=== PATIENT | female | born 1940 | race Caucasian/White ===

== ENCOUNTER 2016-09-17 11:59 | Inpatient (IN) | payer MEDICARE ==
[~2016-09-17] VITALS: Ht 152.4 cm; Wt 110.0 kg
[~2016-09-17 11:59] MED LIST: AMLO5TAB22 PO; CALC-179 PO; COUM5TAB PO; FISHCAP; LEVO100T4 PO; ONE50TAB4
--- NOTE | 2016-09-17 12:31 | PD ---
HPI Chief Complaint: nonhealing wound with cellulitis of the left lower extremity. Time Seen by Provider: 12:30 Travel History International Travel<30 days: No Contact w/Intl Traveler<30days: No Traveled to known affect area: No History of Present Illness HPI 75-year-old female brought in by [facility] from local nursing facility. Patient states an injury to the left lower extremity 2 weeks ago for which she was hospitalized in [facility]. She was recently discharged to the nursing facility and placed on oral medications. Her PCP Dr. Stock saw her and recommended she come the emergency department as she was not improving on oral antibiotics. Currently the patient has no real complaints of fever, chills , pain, or other constitutional symptoms. Patient is currently on doxycycline and Cefdinir by mouth. Patient has a history of chronic lymphadenopathy and lower extremity edema as well as atrial fibrillation, and thyroid disease. She is on Lasix and Bumex as well as Coumadin. She is allergic to Cipro, codeine, and cortisone. [facility] Social History Alcohol Use: No Tobacco Use: No Substance Use: No Allergies-Medications (Allergen,Severity, Reaction): Coded Allergies: Cipro (Verified Allergy, Intermediate, ITCHING, 09/17/16) Cortisone (Verified Allergy, Intermediate, RASH, 09/17/16) Codeine (Verified Allergy, Unknown, RASH, 09/17/16) Reported Meds & Prescriptions Reported Meds & Active Scripts Active Reported Tylenol-Codeine #3 (Acetaminophen-Codeine) 300-30 mg Tab 1 Tab PO Q6H PRN 14 Days Milk of Magnesia Liq (Magnesium Hydroxide) 400 Mg/5 Ml Susp 30 Ml PO BID PRN Zofran (Ondansetron HCl) 4 Mg Tab 4 Mg PO Q6HR PRN Pepcid (Famotidine) 20 Mg Tab 20 Mg PO BID Coumadin (Warfarin) 5 Mg Tab 5 Mg PO DAILY Cefdinir 300 Mg Cap 300 Mg PO Q12HR Doxycycline Hyclate 100 Mg Cap 100 Mg PO BID 10 Days Colace (Docusate Sodium) 100 Mg Cap 100 Mg PO Q12HR Kaibeto-3 Fish Oil 1000 mg (Kaibeto-3 Fatty Acids) 1 Cap Cap 1,000 Mg PO BID Symbicort Inh (Budesonide/Formoterol Fumarate) 80-4.5 Mcg/Act Aero 1 Puff INH Q12HR Bumetanide 0.5 Mg Tab 0.5 Mg PO DAILY Multi Vitamin (Multiple Vitamin) 1 Tab Tab 1 Tab PO DAILY Levothyroxine (Levothyroxine Sodium) 100 Mcg Tab 100 Mcg PO DAILY Review of Systems Except as stated in HPI: all other systems reviewed are Neg General / Constitutional: No: Fever, Chills Eyes: No: Visual changes HENT: No: Headaches Cardiovascular: No: Chest Pain or Discomfort Respiratory: No: Shortness of Breath Gastrointestinal: No: Abdominal Pain Genitourinary: No: Dysuria Musculoskeletal: No: Pain Skin: Positive Lesions, No Rash Neurologic: No: Weakness Psychiatric: No: Depression Endocrine: No: Polydipsia Hematologic/Lymphatic: No: Easy Bruising Physical Exam Narrative GENERAL: Patient is morbidly obese and otherwise in no acute distress. SKIN: Warm and dry. Normal color. Normal turgor. Patient has large six-inch by one half and open wound to the left anterior romero with localized erythema, but no streaking or lymphangitis. Wound cultures obtained. HEAD: Atraumatic. Normocephalic. EYES: Pupils equal and round. No scleral icterus. No injection or drainage. ENT: No nasal bleeding or discharge. Mucous membranes pink and moist. Pharynx is clear. Airway is patent. NECK: Trachea midline. Supple nontender. CARDIOVASCULAR: Irregularly irregular rate and rhythm. RESPIRATORY: No accessory muscle use. Clear to auscultation. Breath sounds equal bilaterally. GASTROINTESTINAL: Abdomen soft, non-tender, nondistended. Hepatic and splenic margins not palpable. MUSCULOSKELETAL: Extremities without clubbing, cyanosis, bilateral 2-3+ pedal edema. No obvious deformities. NEUROLOGICAL: Awake and alert. No obvious cranial nerve deficits. Motor grossly within normal limits. Five out of 5 muscle strength in the arms and legs. Normal speech. PSYCHIATRIC: Appropriate mood and affect; insight and judgment normal. Data Data Last Documented VS Vital Signs Date Time Temp Pulse Resp B/P Pulse Ox O2 Delivery O2 Flow Rate FiO2 09/17/16 12:58 97 Room Air 09/17/16 12:58 16 09/17/16 12:46 81 09/17/16 12:34 97.8 103/67 Orders Electrocardiogram (09/17/16 12:39) Complete Blood Count With Diff (09/17/16 12:39) Comprehensive Metabolic Panel (09/17/16 12:39) Prothrombin Time / Inr (Pt) (09/17/16 12:39) Act Partial Throm Time (Ptt) (09/17/16 12:39) Lactic Acid Sepsis Protocol (09/17/16 12:39) Urinalysis - C+S If Indicated (09/17/16 12:39) Blood Culture (09/17/16 12:39) Wound Culture And Gram Stain (09/17/16 12:39) Chest, Single Ap (09/17/16 12:39) Blood Glucose (09/17/16 12:39) Ecg Monitoring (09/17/16 12:39) Iv Access Insert/Monitor (09/17/16 12:39) Oximetry (09/17/16 12:39) Oxygen Administration (09/17/16 12:39) Piperacil-Tazo 4.5 Gm Premix (Zosyn 4.5 (09/17/16 12:39) Vancomycin Inj (Vancomycin Inj) (09/17/16 12:39) Admit To Inpatient (09/17/16 ) Code Status (09/17/16 13:58) Vital Signs (Adult) Q4H (09/17/16 13:58) Activity Oob With Assistance (09/17/16 13:58) Diet Heart Healthy (09/17/16 Lunch) Sodium Chloride 0.9% Flush (Ns Flush) (09/17/16 14:00) Sodium Chloride 0.9% Flush (Ns Flush) (09/17/16 21:00) Acetaminophen (Tylenol) (09/17/16 14:00) Ondansetron Inj (Zofran Inj) (09/17/16 14:00) Magnesium Hydroxide Liq (Milk Of Magnesi (09/17/16 14:00) Temazepam (Restoril) (09/17/16 21:00) Basic Metabolic Panel (Bmp) (09/18/16 06:00) Complete Blood Count With Diff (09/18/16 06:00) Pt Request For Service (09/17/16 13:58) Scd Bilateral/Knee High EARLENE.BID (09/17/16 13:58) Naloxone Inj (Narcan Inj) (09/17/16 14:00) Inpatient Certification (09/17/16 ) Consult General Surgery (09/17/16 ) Piperacil-Tazo 2.25 Gm Premix (Zosyn 2.2 (09/17/16 20:00) Magnesium (Mg) (09/18/16 06:00) Budeson-Formot 80-4.5 Mcg Inh (Symbicort (09/17/16 21:00) Bumetanide (Bumetanide) (09/18/16 09:00) Famotidine (Pepcid) (09/17/16 21:00) Levothyroxine (Synthroid) (09/18/16 06:00) Multivitamin (Theragran) (09/18/16 09:00) Warfarin (Coumadin) (09/17/16 16:00) Vancomycin Consult Pharmacy (Vancomycin (09/17/16 14:15) Admit Order (Ed Use Only) (09/17/16 14:08) Labs Laboratory Tests Test 09/17/16 13:00 White Blood Count 6.9 TH/MM3 Red Blood Count 3.40 MIL/MM3 Hemoglobin 9.8 GM/DL Hematocrit 30.2 % Mean Corpuscular Volume 88.9 FL Mean Corpuscular Hemoglobin 28.9 PG Mean Corpuscular Hemoglobin 32.6 % Concent Red Cell Distribution Width 15.5 % Platelet Count 275 TH/MM3 Mean Platelet Volume 8.1 FL Neutrophils (%) (Auto) 63.7 % Lymphocytes (%) (Auto) 22.8 % Monocytes (%) (Auto) 10.1 % Eosinophils (%) (Auto) 2.5 % Basophils (%) (Auto) 0.9 % Neutrophils # (Auto) 4.4 TH/MM3 Lymphocytes # (Auto) 1.6 TH/MM3 Monocytes # (Auto) 0.7 TH/MM3 Eosinophils # (Auto) 0.2 TH/MM3 Basophils # (Auto) 0.1 TH/MM3 CBC Comment DIFF FINAL Differential Comment Prothrombin Time 19.5 SEC Prothromb Time International 1.7 RATIO Ratio Activated Partial 32.7 SEC Thromboplast Time Sodium Level 144 MEQ/L Potassium Level 4.5 MEQ/L Chloride Level 104 MEQ/L Carbon Dioxide Level 32.4 MEQ/L Anion Gap 8 MEQ/L Blood Urea Nitrogen 28 MG/DL Creatinine 1.64 MG/DL Estimat Glomerular Filtration 31 ML/MIN Rate Random Glucose 91 MG/DL Lactic Acid Level 0.9 mmol/L Calcium Level 8.5 MG/DL Total Bilirubin 0.4 MG/DL Aspartate Amino Transf 12 U/L (AST/SGOT) Alanine Aminotransferase 14 U/L (ALT/SGPT) Alkaline Phosphatase 115 U/L Total Protein 5.8 GM/DL Albumin 2.3 GM/DL [facility] Medical Decision Making Medical Screen Exam Complete: Yes Emergency Medical Condition: Yes Differential Diagnosis Nonhealing wound to the left anterior thigh. Cellulitis. Thyroid outpatient therapy. Narrative Course Patient medically stable at time of exam. Labs ordered including CBC, CMP, PT PTT and INR, Lactic acid, blood cultures 2 , and urinalysis. EKG and chest x-ray are ordered as well. EKG shows atrial fibrillation with a ventricular rate of 91. Chest x-ray shows questional mass in the right side and chest CT with intravenous contrast is suggested. Call was Placed to Dr. Stock, and he agreed to Admit the patient as he saw her earlier in the Day and knows the patient. Diagnosis Primary Impression: Cellulitis of left lower extremity Additional Impressions: Chronic a-fib COPD (chronic obstructive pulmonary disease) Qualified Code: J42 - Chronic bronchitis, unspecified chronic bronchitis type Admitting Information Admitting Physician Requests: Admit Condition: Stable Clot Alfredo Sep 17, 2016 12:31
[2016-09-17 12:34] VITALS: BP 103/67; PULSE 88; RESP 16; TEMP 97.8; O2SAT 97
[2016-09-17] MEDS ORDERED: PIPERACIL-TAZO 4.5 GM PREMIX 100 ML IV STA (12:39)
[2016-09-17] MEDS ORDERED: VANCOMYCIN INJ 1,000 MG in SODIUM CHLOR 0.9% 250 ML INJ 250 ML IV STA (12:39)
[2016-09-17 12:58] VITALS: RESP 16; O2SAT 98
--- NOTE | 2016-09-17 13:18 | RADRPT ---
EXAM DATE/TIME: 09/17/2016 12:47 CORRECTION Corrected on: September 17, 2016; [facility] COMPARISON: No previous studies available for comparison. INDICATIONS : Evaluate for pneumonia, pneumothorax or communicable disease, being admitted for infection in her lef t leg. MEDICAL HISTORY : Chronic obstructive pulmonary disease. atrial fibrillation SURGICAL HISTORY : None. ENCOUNTER: Initial ACUITY: 1 day PAIN SCORE: 0/10 LOCATION: Bilateral chest FINDINGS: There is a questionable mass versus overlap of the pulmonary arteries in the right infrahilar locatio n. Slight cardiomegaly seen. CONCLUSION: Questionable mass on the right side and chest CT with intravenous contrast is suggested. Benja Escalona MD on September 17, 2016 at 13:24 Board Certified Radiologist. This report was verified electronically.
[2016-09-17] MEDS ORDERED: LEVO100T5 PO (13:22)
[2016-09-17] MEDS ORDERED: OMEG10005 PO (13:22)
[2016-09-17] MEDS ORDERED: DOXY100C PO (13:22)
[2016-09-17] MEDS ORDERED: CEFD300C PO (13:22)
[2016-09-17] MEDS ORDERED: FAMO1TAB37 PO (13:22)
[2016-09-17] MEDS ORDERED: COUM5TAB PO (13:22)
[2016-09-17] MEDS ORDERED: BUME0.5T PO (13:22)
[2016-09-17] MEDS ORDERED: SYMB80AE INH (13:22)
[2016-09-17] MEDS ORDERED: ZOFR4TAB PO (13:22)
[2016-09-17] MEDS ORDERED: MULT-135 PO (13:22)
[2016-09-17] MEDS ORDERED: COLA100C3 PO (13:22)
[2016-09-17] MEDS ORDERED: MILKSUS PO (13:22)
[2016-09-17] MEDS ORDERED: TYLETAB34 PO (13:22)
[2016-09-17 13:46] LABS: AUTOMATED NEUTROPHIL # 4.4 TH/MM3 (1.8-7.7); BASOPHIL # 0.1 TH/MM3 (0-0.2); BASOPHIL % 0.9 % (0.0-2.0); EOSINOPHIL # 0.2 TH/MM3 (0-0.4); EOSINOPHIL % 2.5 % (0.0-4.0); HEMATOCRIT 30.2 % (35.0-46.0); HEMO FLAGS DIFF FINAL; LYMPH % 22.8 % (9.0-44.0); LYMPHOCYTE # 1.6 TH/MM3 (1.0-4.8); MEAN CELL VOLUME 88.9 FL (80.0-100.0); MEAN CORPUSCULAR HEMOGLOBIN 28.9 PG (27.0-34.0); MEAN CORPUSCULAR HGB CONC 32.6 % (32.0-36.0); MONO % 10.1 % (0.0-8.0); NEUT % 63.7 % (16.0-70.0); PLATELET COUNT 275 TH/MM3 (150-450); RED CELL DISTRIBUTION WIDTH 15.5 % (11.6-17.2); WHITE BLOOD COUNT 6.9 TH/MM3 (4.0-11.0)
[2016-09-17 13:52] LABS: APTT (PATIENT) 32.7 SEC (24.3-30.1); INTERNATIONAL NORMALIZED RATIO 1.7 RATIO; PROTHROMBIN TIME - PATIENT 19.5 SEC (9.8-11.6)
[2016-09-17] MEDS ORDERED: MAGNESIUM HYDROXIDE SUSP 30 ML CUP PO PRN (14:00)
[2016-09-17] MEDS ORDERED: NALOXONE HCL 0.4 MG/ML AMP IV PRN (14:00)
[2016-09-17] MEDS ORDERED: ONDANSETRON HCL 4 MG/2 ML VIAL IVP PRN (14:00)
[2016-09-17] MEDS ORDERED: SODIUM CHLORIDE 0.9% FLUSH 10 ML FLUSH IV FLUSH PRN (14:00)
[2016-09-17] MEDS ORDERED: ACETAMINOPHEN 325 MG TAB PO PRN (14:00)
[2016-09-17 14:07] LABS: ALT (GPT) 14 U/L (10-53); ANION GAP 8 MEQ/L (5-15); AST (GOT) 12 U/L (15-37); BICARBONATE 32.4 MEQ/L (21.0-32.0); BLOOD UREA NITROGEN 28 MG/DL (7-18); CHLORIDE 104 MEQ/L (98-107); GLOMERULAR FILTRATION RATE 31 ML/MIN (>89); POTASSIUM 4.5 MEQ/L (3.5-5.1); SODIUM (NA) 144 MEQ/L (136-145)
[2016-09-17 14:09] LABS: ALKALINE PHOSPHATASE 115 U/L (45-117); TOTAL BILIRUBIN ADULT 0.4 MG/DL (0.2-1.0)
[2016-09-17] MEDS ORDERED: ACETAMINOPHEN/HYDROcodone 325 MG/5 MG TAB PO PRN (14:15)
[2016-09-17] MEDS ORDERED: Vancomycin Consult Pharmacy 1 EA OTHER SCH (14:15)
[2016-09-17 14:28] VITALS: BP 102/66; PULSE 68; RESP 17; TEMP 97.8; O2SAT 99
[2016-09-17] MEDS ORDERED: ACETAMINOPHEN/CODEINE 300 MG/30 MG TAB PO PRN (15:00)
[2016-09-17] MEDS ORDERED: SILVER NITR/POTASSIUM NITRATE APPLICATORS TOPICAL ONE (15:30)
--- NOTE | 2016-09-17 15:37 | PD.CONS ---
HPI Service [facility] General Surgery Consult Requested By Dr. Stock Reason for Consult nonhealing LLE wound Primary Care Physician Unknown History of Present Illness 75 yo F who had a fall about 3 weeks ago with wound to LLE romero area. She developed cellulitis and was treated at [facility] for a time before being discharged to SNF. She has had continued nonhealing wound with surrounding cellulitis. She has h/o DVT on coumadin. Past Family Social History Allergies: Coded Allergies: Cipro (Verified Allergy, Intermediate, ITCHING, 09/17/16) Cortisone (Verified Allergy, Intermediate, RASH, 09/17/16) Codeine (Verified Allergy, Unknown, RASH, 09/17/16) Active Ordered Medications Current Medications Medications (Trade) Dose Ordered Sig/Merrick Route Start Time Stop Time Status Last Admin (NS Flush) 2 ml UNSCH PRN IV FLUSH 09/17/16 14:00 (NS Flush) 2 ml BID IV FLUSH 09/17/16 21:00 (Tylenol) 650 mg Q4H PRN PO 09/17/16 14:00 (Zofran Inj) 4 mg Q6H PRN IVP 09/17/16 14:00 (Milk Of Magnesia Liq) 30 ml Q12H PRN PO 09/17/16 14:00 (Restoril) 15 mg HS PRN PO 09/17/16 21:00 Naloxone HCl 0.4 mg 0.4 mg UNSCH PRN IV 09/17/16 14:00 (Zosyn 2.25 Gm Premix) 50 ml @ 100 mls/hr Q6H IV 09/17/16 20:00 (Symbicort 80-4.5 Mcg Inh) 1 puff Q12HR INH 09/17/16 21:00 (Bumetanide) 0.5 mg DAILY PO 09/18/16 09:00 (Pepcid) 10 mg BID PO 09/17/16 21:00 (Synthroid) 100 mcg DAILY@06 PO 09/18/16 06:00 (Theragran) 1 tab DAILY PO 09/18/16 09:00 Warfarin Sodium 5 mg 5 mg DAILY@1600 PO 09/17/16 16:00 Pharmacy Profile Note ml @ 0 mls/hr UNSCH OTHER 09/17/16 14:15 (Vancomycin Inj/ NS 500 ml Inj) 517.5 ml @ 250 mls/hr Q36H IV 09/18/16 13:00 (Tylenol-Codeine #3) 1 tab Q6H PRN PO 09/17/16 15:00 Physical Exam Vital Signs Vital Signs Date Time Temp Pulse Resp B/P Pulse Ox O2 Delivery O2 Flow Rate FiO2 09/17/16 14:28 97.8 68 17 102/66 99 Room Air 09/17/16 12:58 97 Room Air 09/17/16 12:58 16 98 Room Air 09/17/16 12:46 81 09/17/16 12:34 97.8 88 16 103/67 97 Laboratory Laboratory Tests Test 09/17/16 13:00 White Blood Count 6.9 Red Blood Count 3.40 Hemoglobin 9.8 Hematocrit 30.2 Mean Corpuscular Volume 88.9 Mean Corpuscular Hemoglobin 28.9 Mean Corpuscular Hemoglobin 32.6 Concent Red Cell Distribution Width 15.5 Platelet Count 275 Mean Platelet Volume 8.1 Neutrophils (%) (Auto) 63.7 Lymphocytes (%) (Auto) 22.8 Monocytes (%) (Auto) 10.1 Eosinophils (%) (Auto) 2.5 Basophils (%) (Auto) 0.9 Neutrophils # (Auto) 4.4 Lymphocytes # (Auto) 1.6 Monocytes # (Auto) 0.7 Eosinophils # (Auto) 0.2 Basophils # (Auto) 0.1 CBC Comment DIFF FINAL Differential Comment Prothrombin Time 19.5 Prothromb Time International 1.7 Ratio Activated Partial 32.7 Thromboplast Time Sodium Level 144 Potassium Level 4.5 Chloride Level 104 Carbon Dioxide Level 32.4 Anion Gap 8 Blood Urea Nitrogen 28 Creatinine 1.64 Estimat Glomerular Filtration 31 Rate Random Glucose 91 Lactic Acid Level 0.9 Calcium Level 8.5 Total Bilirubin 0.4 Aspartate Amino Transf 12 (AST/SGOT) Alanine Aminotransferase 14 (ALT/SGPT) Alkaline Phosphatase 115 Total Protein 5.8 Albumin 2.3 Date/Time Procedure Status Source Growth 09/17/16 13:12 Aerobic Blood Culture Received Blood Peripheral Pending 09/17/16 13:12 Anaerobic Blood Culture Received Blood Peripheral Pending 09/17/16 13:00 Gram Stain - Final Resulted Wound Leg 09/17/16 13:00 Wound Culture Resulted Wound Leg Pending Result Diagram: 09/17/16 1300 09/17/16 1300 Assessment and Plan Assessment and Plan 75 yo F nonhealing LLE wound with cellulitis. I performed sharp debridment and chemical debridement with silver nitrate at bedside. Consult wound care nurse. Wrap with aurelia bandage from toes to just below knee at each dressing change, just enough pressure to decrease edema. Florentino Yap MD Sep 17, 2016 15:37
[2016-09-17] MEDS ORDERED: FUROSEMIDE 100 MG/10 ML VIAL IV PUSH ONE (16:00)
[2016-09-17] MEDS ORDERED: IODIXANOL 320 MG/ML 10 ML VIAL (for Rad CT) IV ONE (16:02)
--- NOTE | 2016-09-17 16:04 | PD ---
Data Data Last Documented VS Vital Signs Date Time Temp Pulse Resp B/P Pulse Ox O2 Delivery O2 Flow Rate FiO2 09/17/16 12:58 97 Room Air 09/17/16 12:58 16 09/17/16 12:46 81 09/17/16 12:34 97.8 103/67 Orders Electrocardiogram (09/17/16 12:39) Complete Blood Count With Diff (09/17/16 12:39) Comprehensive Metabolic Panel (09/17/16 12:39) Prothrombin Time / Inr (Pt) (09/17/16 12:39) Act Partial Throm Time (Ptt) (09/17/16 12:39) Lactic Acid Sepsis Protocol (09/17/16 12:39) Urinalysis - C+S If Indicated (09/17/16 12:39) Blood Culture (09/17/16 12:39) Wound Culture And Gram Stain (09/17/16 12:39) Chest, Single Ap (09/17/16 12:39) Blood Glucose (09/17/16 12:39) Ecg Monitoring (09/17/16 12:39) Iv Access Insert/Monitor (09/17/16 12:39) Oximetry (09/17/16 12:39) Oxygen Administration (09/17/16 12:39) Piperacil-Tazo 4.5 Gm Premix (Zosyn 4.5 (09/17/16 12:39) Vancomycin Inj (Vancomycin Inj) (09/17/16 12:39) Admit To Inpatient (09/17/16 ) Code Status (09/17/16 13:58) Vital Signs (Adult) Q4H (09/17/16 13:58) Activity Oob With Assistance (09/17/16 13:58) Diet Heart Healthy (09/17/16 Lunch) Sodium Chloride 0.9% Flush (Ns Flush) (09/17/16 14:00) Sodium Chloride 0.9% Flush (Ns Flush) (09/17/16 21:00) Acetaminophen (Tylenol) (09/17/16 14:00) Ondansetron Inj (Zofran Inj) (09/17/16 14:00) Magnesium Hydroxide Liq (Milk Of Magnesi (09/17/16 14:00) Temazepam (Restoril) (09/17/16 21:00) Basic Metabolic Panel (Bmp) (09/18/16 06:00) Complete Blood Count With Diff (09/18/16 06:00) Electrocardiogram (09/17/16 13:58) Pt Request For Service (09/17/16 13:58) Scd Bilateral/Knee High EARLENE.BID (09/17/16 13:58) Naloxone Inj (Narcan Inj) (09/17/16 14:00) Inpatient Certification (09/17/16 ) Consult General Surgery (09/17/16 ) Ct Thorax/ Chest W Iv Contrast (09/17/16 ) Piperacil-Tazo 2.25 Gm Premix (Zosyn 2.2 (09/17/16 20:00) Magnesium (Mg) (09/18/16 06:00) Budeson-Formot 80-4.5 Mcg Inh (Symbicort (09/17/16 21:00) Bumetanide (Bumetanide) (09/18/16 09:00) Famotidine (Pepcid) (09/17/16 21:00) Levothyroxine (Synthroid) (09/18/16 06:00) Multivitamin (Theragran) (09/18/16 09:00) Warfarin (Coumadin) (09/17/16 16:00) Vancomycin Consult Pharmacy (Vancomycin (09/17/16 14:15) Admit Order (Ed Use Only) (09/17/16 14:08) Labs Laboratory Tests Test 09/17/16 13:00 White Blood Count 6.9 TH/MM3 Red Blood Count 3.40 MIL/MM3 Hemoglobin 9.8 GM/DL Hematocrit 30.2 % Mean Corpuscular Volume 88.9 FL Mean Corpuscular Hemoglobin 28.9 PG Mean Corpuscular Hemoglobin 32.6 % Concent Red Cell Distribution Width 15.5 % Platelet Count 275 TH/MM3 Mean Platelet Volume 8.1 FL Neutrophils (%) (Auto) 63.7 % Lymphocytes (%) (Auto) 22.8 % Monocytes (%) (Auto) 10.1 % Eosinophils (%) (Auto) 2.5 % Basophils (%) (Auto) 0.9 % Neutrophils # (Auto) 4.4 TH/MM3 Lymphocytes # (Auto) 1.6 TH/MM3 Monocytes # (Auto) 0.7 TH/MM3 Eosinophils # (Auto) 0.2 TH/MM3 Basophils # (Auto) 0.1 TH/MM3 CBC Comment DIFF FINAL Differential Comment Prothrombin Time 19.5 SEC Prothromb Time International 1.7 RATIO Ratio Activated Partial 32.7 SEC Thromboplast Time Sodium Level 144 MEQ/L Potassium Level 4.5 MEQ/L Chloride Level 104 MEQ/L Carbon Dioxide Level 32.4 MEQ/L Anion Gap 8 MEQ/L Blood Urea Nitrogen 28 MG/DL Creatinine 1.64 MG/DL Estimat Glomerular Filtration 31 ML/MIN Rate Random Glucose 91 MG/DL Lactic Acid Level 0.9 mmol/L Calcium Level 8.5 MG/DL Total Bilirubin 0.4 MG/DL Aspartate Amino Transf 12 U/L (AST/SGOT) Alanine Aminotransferase 14 U/L (ALT/SGPT) Alkaline Phosphatase 115 U/L Total Protein 5.8 GM/DL Albumin 2.3 GM/DL MDM Supervised Visit with [facility]: Yes Narrative Course The history, exam, and medical decision-making in the associated mid-level provider note were completed with my assistance. I reviewed and agree with the findings presented. I attest that I had a [id number] encounter with the patient on the same day, and personally performed and documented my assessment and findings in the medical record. *My assessment and Findings: 74 year-old woman with multiple medical problems and lymphedema and a nonhealing wound on her left leg and still having worsening infection despite oral antibiotics, referred to the emergency department for admission. On exam, not septic, chronic wound on her left leg from previous injury. Duane Soliz MD Sep 17, 2016 16:04
[2016-09-17] MEDS: POTASSIUM CHLORIDE 20 MEQ CONTROLLED RELEASE TAB PO SCH (16:09)
[2016-09-17] MEDS: WARFARIN SOD 5 MG TAB PO SCH (16:09)
--- NOTE | 2016-09-17 16:22 | RADRPT ---
EXAM DATE/TIME: 09/17/2016 15:52 [facility] COMPARISON: No previous studies available for comparison. INDICATIONS : Evaluate for mass. IV CONTRAST: 50 cc Visipaque (iodixanol) IV RADIATION DOSE: 15.93 CTDIvol (mGy) MEDICAL HISTORY : Chronic obstructive pulmonary disease. SURGICAL HISTORY : None. ENCOUNTER: Initial ACUITY: 1 day PAIN SCALE: 0/10 LOCATION: Bilateral chest TECHNIQUE: Volumetric scanning of the chest was performed. Using automated exposure control and adjustment of t he mA and/or kV according to patient size, radiation dose was kept as low as reasonably achievable to obtain optimal diagnostic quality images. FINDINGS: There are no suspicious lung lesions identified. There is marked thoracolumbar scoliosis. There is no axillary adenopathy. There are prominent pulmonary arteries centrally. There are marked coronary artery calcifications. Evidence for previous gastric surgery is noted. CONCLUSION: 1. I do not see any suspicious lung lesions. 2. Thoracolumbar scoliosis with degenerative changes. 3. Prominent pulmonary arteries centrally, this can be seen with pulmonary hypertension. Mikey Pond MD FACR on September 17, 2016 at 16:15 Board Certified Radiologist. This report was verified electronically.
[2016-09-17 16:33] VITALS: BP 106/67; PULSE 78; RESP 16; TEMP 97.8; O2SAT 99
[2016-09-17 17:20] LABS: BACTERIA, URINE RARE /hpf; BLOOD, URINE NEG (NEG); GLUCOSE,URINE NEG (NEG); HYALINE CAST, URINE 1 /lpf (RARE); KETONE, URINE NEG (NEG); NITRITE,URINE NEG (NEG); PH, URINE 8.5 (5.0-8.5); SQUAMOUS EPITHELIAL CELL URINE 3 /hpf (0-5); URINE COLOR YELLOW (YELLW/STRAW)
[2016-09-17 17:26] LABS: COMMENT (UR) CATH-CULTURE IND; CULTURE IF INDICATED CATH CULTURE IND
--- NOTE | 2016-09-17 17:38 | HHI.HP ---
HPI Service CP Hospitalists Primary Care Physician Unknown Admission Diagnosis Left Leg Wound/Cellulitis Chief Complaint: left leg wound and cellulitis Travel History International Travel<30 Days: No Contact w/Intl Traveler <30 Da: No Traveled to Known Affected Are: No History of Present Illness Patient is a pleasant 75-year-old female with history of atrial fibrillation, CHF, hypothyroidism. Patient injured her left lower extremity with a fall approximately 3 weeks ago. Patient's mother suffered a small wound at the left lower extremity. Patient failed to improve on outpatient oral antibiotics, Keflex. She was hospitalized for a few days at [facility]. Patient was treated with IV antibiotics with IV vancomycin per ID Dr. Zheng, and then discharged to [facility] on a regimen of Cefdinir and doxycycline. I was the attending physician at [facility]. Nursing staff informed me that patient was having significant drainage from edematous left lower extremity. When I came to reevaluate the patient on 09/17/16, left lower extremity had worsening edema, erythema, and wound looked worse with necrotic tissue. I requested that the patient be sent to [facility] for admission. I discussed the case with general surgery, Dr. Florentino Yap. Dr. Yap consult is on Ms. Gramajo and performed bedside debridement. Patient started on IV antibiotics and admitted to [facility] for further evaluation and treatment. Review of Systems Constitutional: DENIES: Diaphoretic episodes, Fatigue, Fever, Weight gain, Weight loss, Chills, Dizziness, Change in appetite, Night Sweats Endocrine: DENIES: Heat/cold intolerance, Polydipsia, Polyuria, Polyphagia Eyes: DENIES: Blurred vision, Diplopia, Eye inflammation, Eye pain, Vision loss , Photosensitivity, Double Vision Ears, nose, mouth, throat: DENIES: Tinnitus, Hearing loss, Vertigo, Nasal discharge, Oral lesions, Throat pain, Hoarseness, Ear Pain, Running Nose, Epistaxis, Sinus Pain, Toothache, Odynophagia Respiratory: DENIES: Apneas, Cough, Snoring, Wheezing, Hemoptysis, Sputum production, Shortness of breath Cardiovascular: DENIES: Chest pain, Palpitations, Syncope, Dyspnea on Exertion , PND, Lower Extremity Edema, Orthopnea, Claudication Gastrointestinal: DENIES: Abdominal pain, Black stools, Bloody stools, BRB per rectum, Constipation, Diarrhea, GERD, Nausea, Reflux, Vomiting, Difficulty Swallowing, Anorexia Genitourinary: DENIES: Urinary frequency, Urinary incontinence, Urgency, Hematuria, Dysuria, Nocturia Musculoskeletal: DENIES: Joint pain, Muscle aches, Stiffness, Joint Swelling, Back pain, Neck pain Integumentary: COMPLAINS OF: Nipple discharge, DENIES: Abnormal pigmentation, Pruritus, Rash, Nail changes Hematologic/lymphatic: DENIES: Bruising, Lymphadenopathy Immunologic/allergic: DENIES: Eczema, Urticaria Neurologic: DENIES: Abnormal gait, Headache, Localized weakness, Paresthesias, Seizures, Speech Problems, Tremor, Poor Balance Psychiatric: DENIES: Anxiety, Confusion, Mood changes, Depression, Hallucinations, Agitation, Suicidal Ideation, Homicidal Ideation, Delusions, History of Bipolar, History of Schizophrenia Past Family Social History Past Medical History 1) hypertension 2) hypothyroidism 3) obesity 4) atrial fibrillation 5) CHF, unspecified 6) Hyperlipidemia 7) Vitamin D 8) CKD, stage 3 Past Surgical History 1) appendectomy 2) hysterectomy 3) gastric bypass 4) abdominoplasty Reported Medications Reported Meds & Active Scripts Active Reported Tylenol-Codeine #3 (Acetaminophen-Codeine) 300-30 mg Tab 1 Tab PO Q6H PRN 14 Days Milk of Magnesia Liq (Magnesium Hydroxide) 400 Mg/5 Ml Susp 30 Ml PO BID PRN Zofran (Ondansetron HCl) 4 Mg Tab 4 Mg PO Q6HR PRN Pepcid (Famotidine) 20 Mg Tab 20 Mg PO BID Coumadin (Warfarin) 5 Mg Tab 5 Mg PO DAILY Cefdinir 300 Mg Cap 300 Mg PO Q12HR Doxycycline Hyclate 100 Mg Cap 100 Mg PO BID 10 Days Colace (Docusate Sodium) 100 Mg Cap 100 Mg PO Q12HR [place]-3 Fish Oil 1000 mg ([place]-3 Fatty Acids) 1 Cap Cap 1,000 Mg PO BID Symbicort Inh (Budesonide/Formoterol Fumarate) 80-4.5 Mcg/Act Aero 1 Puff INH Q12HR Bumetanide 0.5 Mg Tab 0.5 Mg PO DAILY Multi Vitamin (Multiple Vitamin) 1 Tab Tab 1 Tab PO DAILY Levothyroxine (Levothyroxine Sodium) 100 Mcg Tab 100 Mcg PO DAILY Allergies: Coded Allergies: Cipro (Verified Allergy, Intermediate, ITCHING, 09/17/16) Cortisone (Verified Allergy, Intermediate, RASH, 09/17/16) Codeine (Verified Allergy, Unknown, RASH, 09/17/16) Family History Noncontributory Social History - former smoker, quit 40 yrs ago - no alcohol - no illicit drugs Physical Exam Vital Signs Vital Signs Date Time Temp Pulse Resp B/P Pulse Ox O2 Delivery O2 Flow Rate FiO2 09/17/16 16:33 97.8 78 16 106/67 99 Room Air 09/17/16 14:28 97.8 68 17 102/66 99 Room Air 09/17/16 12:58 97 Room Air 09/17/16 12:58 16 98 Room Air 09/17/16 12:46 81 09/17/16 12:34 97.8 88 16 103/67 97 Physical Exam GENERAL: This is a well-nourished, well-developed patient, in no apparent distress. SKIN: No rashes, ecchymoses or lesions. Cool and dry. HEAD: Atraumatic. Normocephalic. No temporal or scalp tenderness. EYES: Pupils equal round and reactive. Extraocular motions intact. No scleral icterus. No injection or drainage. ENT: Nose without bleeding, purulent drainage or septal hematoma. Throat without erythema, tonsillar hypertrophy or exudate. Uvula midline. Airway patent. NECK: Trachea midline. No JVD or lymphadenopathy. Supple, nontender, no meningeal signs. CARDIOVASCULAR: Regular rate and rhythm without murmurs, gallops, or rubs. RESPIRATORY: Clear to auscultation. Breath sounds equal bilaterally. No wheezes , rales, or rhonchi. GASTROINTESTINAL: Abdomen soft, non-tender, nondistended. No hepato-splenomegaly , or palpable masses. No guarding. MUSCULOSKELETAL: Extremities without clubbing, cyanosis, or edema. No joint tenderness, effusion, or edema noted. No calf tenderness. Negative Homans sign bilaterally. NEUROLOGICAL: Awake and alert. Cranial nerves II through XII intact. Motor and sensory grossly within normal limits. Five out of 5 muscle strength in all muscle groups. Normal speech. Laboratory Laboratory Tests Test 09/17/16 09/17/16 13:00 16:35 White Blood Count 6.9 Red Blood Count 3.40 Hemoglobin 9.8 Hematocrit 30.2 Mean Corpuscular Volume 88.9 Mean Corpuscular Hemoglobin 28.9 Mean Corpuscular Hemoglobin 32.6 Concent Red Cell Distribution Width 15.5 Platelet Count 275 Mean Platelet Volume 8.1 Neutrophils (%) (Auto) 63.7 Lymphocytes (%) (Auto) 22.8 Monocytes (%) (Auto) 10.1 Eosinophils (%) (Auto) 2.5 Basophils (%) (Auto) 0.9 Neutrophils # (Auto) 4.4 Lymphocytes # (Auto) 1.6 Monocytes # (Auto) 0.7 Eosinophils # (Auto) 0.2 Basophils # (Auto) 0.1 CBC Comment DIFF FINAL Differential Comment Prothrombin Time 19.5 Prothromb Time International 1.7 Ratio Activated Partial 32.7 Thromboplast Time Sodium Level 144 Potassium Level 4.5 Chloride Level 104 Carbon Dioxide Level 32.4 Anion Gap 8 Blood Urea Nitrogen 28 Creatinine 1.64 Estimat Glomerular Filtration 31 Rate Random Glucose 91 Lactic Acid Level 0.9 Calcium Level 8.5 Total Bilirubin 0.4 Aspartate Amino Transf 12 (AST/SGOT) Alanine Aminotransferase 14 (ALT/SGPT) Alkaline Phosphatase 115 Total Protein 5.8 Albumin 2.3 Urine Color YELLOW Urine Turbidity CLEAR Urine pH 8.5 Urine Specific Jackson 1.016 Urine Protein TRACE Urine Glucose (UA) NEG Urine Ketones NEG Urine Occult Blood NEG Urine Nitrite NEG Urine Bilirubin NEG Urine Urobilinogen LESS THAN 2.0 Urine Leukocyte Esterase NEG Urine WBC 1 Urine Squamous Epithelial 3 Cells Urine Bacteria RARE Urine Hyaline Casts 1 Microscopic Urinalysis Comment CATH-CULTURE IND Date/Time Procedure Status Source Growth 09/17/16 16:35 Urine Culture Received Urine Clean Catch Pending 09/17/16 13:12 Aerobic Blood Culture Received Blood Peripheral Pending 09/17/16 13:12 Anaerobic Blood Culture Received Blood Peripheral Pending 09/17/16 13:00 Gram Stain - Final Resulted Wound Leg 09/17/16 13:00 Wound Culture Resulted Wound Leg Pending Result Diagram: 09/17/16 1300 09/17/16 1300 Imaging Last Impressions Chest X-Ray 09/17/16 1239 Signed Impressions: Service Date/Time: Saturday, September 17, 2016 12:47 - CONCLUSION: Questionable mass on the right side and chest CT with intravenous contrast is suggested. Benja Escalona MD Chest CT 09/17/16 0000 Signed Impressions: Service Date/Time: Saturday, September 17, 2016 15:52 - CONCLUSION: 1. I do not see any suspicious lung lesions. 2. Thoracolumbar scoliosis with degenerative changes. 3. Prominent pulmonary arteries centrally, this can be seen with pulmonary hypertension. Mikey Pond MD FACR Septic Shock Reassessment Heart: Regular rate and rhythm Lungs: Clear Skin: Warm Peripheral Pulses: Bounding Right Radial Bounding Left Radial Bounding Right Popliteal Bounding Left Popliteal Bounding Right Dorsalis Pedis Bounding Left Dorsalis Pedis Bounding Right Posterior Tibial Bounding Left Posterior Tibial Capillary Refill: Brisk Assessment and Plan Problem List: (1) Cellulitis of left lower extremity Status: Acute Plan: - s/p debridement by Dr. Yap (09/17/16) - continue IV Vancomycin & zosyn - elevate LLE - wound cx --> pending - blood cx --> pending (2) CHF (congestive heart failure) Status: Acute Plan: - lasix/KCL - last echocardiogram 01/30/15 showed preserved EF of 60% - repeat echocardiogram (3) Chronic a-fib Status: Chronic Plan: - pt is on no rate controlling medication - continue Coumadin - holter 02/2007 --> afib (4) Hypothyroid Status: Chronic Plan: - synthroid (5) COPD (chronic obstructive pulmonary disease) Status: Chronic Plan: - alondra - ofelia Physician Certification 2 Midnight Certification Type: Admission for Inpatient Services Order for Inpatient Services The services are ordered in accordance with Medicare regulations or non- Medicare payer requirements, as applicable. In the case of services not specified as inpatient-only, they are appropriately provided as inpatient services in accordance with the 2-midnight benchmark. Estimated LOS (days): 3 3 days is the estimated time the patient will need to remain in the hospital, assuming treatment plan goals are met and no additional complications. Post-Hospital Plan: Not yet determined Problem Qualifiers (1) CHF (congestive heart failure): Qualified Code: I50.9 - Chronic congestive heart failure, unspecified congestive heart failure type (2) Hypothyroid: Qualified Code: E03.9 - Hypothyroidism, unspecified type (3) COPD (chronic obstructive pulmonary disease): Qualified Code: J42 - Chronic bronchitis, unspecified chronic bronchitis type Lazaro Stock DO Sep 17, 2016 17:38
[2016-09-17 18:10] VITALS: BP 114/60; PULSE 86; RESP 18; TEMP 95.9; O2SAT 95
[2016-09-17 20:00] VITALS: BP 117/59; PULSE 75; RESP 18; TEMP 95.8; O2SAT 96
[2016-09-17] MEDS: PIPERACIL-TAZO 2.25 GM PREMIX 50 ML IV SCH (20:27)
[2016-09-17] MEDS: FAMOTIDINE 20 MG TAB PO SCH (20:28)
[2016-09-17] MEDS: BUDESONIDE-FORMOTEROL 80/4.5 MCG INHALER INH SCH (20:28)
[2016-09-17] MEDS: SODIUM CHLORIDE 0.9% FLUSH 10 ML FLUSH IV FLUSH SCH (20:28)
[2016-09-17] MEDS ORDERED: TEMAZEPAM 15 MG CAP PO PRN (21:00)
[2016-09-17] MEDS ORDERED: traMADol HCL 50 MG TAB PO PRN (21:30)
[2016-09-18] VITALS: BP 102/75; PULSE 86; RESP 17; TEMP 96.1; O2SAT 99
[2016-09-18] MEDS ORDERED: VANCOMYCIN INJ 1,000 MG in SODIUM CHLOR 0.9% 250 ML INJ 250 ML IV SCH (01:00)
[2016-09-18] MEDS: LEVOTHYROXINE SODIUM 100 MCG TAB PO SCH (05:23)
[2016-09-18 07:01] LABS: AUTOMATED NEUTROPHIL # 3.9 TH/MM3 (1.8-7.7); BASOPHIL # 0.1 TH/MM3 (0-0.2); BASOPHIL % 0.8 % (0.0-2.0); EOSINOPHIL # 0.3 TH/MM3 (0-0.4); HEMATOCRIT 32.2 % (35.0-46.0); HEMO FLAGS DIFF FINAL; LYMPH % 24.2 % (9.0-44.0); LYMPHOCYTE # 1.5 TH/MM3 (1.0-4.8); MEAN CELL VOLUME 88.7 FL (80.0-100.0); MEAN CORPUSCULAR HEMOGLOBIN 28.9 PG (27.0-34.0); MEAN CORPUSCULAR HGB CONC 32.5 % (32.0-36.0); MONO % 9.5 % (0.0-8.0); NEUT % 61.5 % (16.0-70.0); PLATELET COUNT 283 TH/MM3 (150-450); RED BLOOD COUNT 3.63 MIL/MM3 (4.00-5.30); RED CELL DISTRIBUTION WIDTH 15.5 % (11.6-17.2); WHITE BLOOD COUNT 6.3 TH/MM3 (4.0-11.0)
[2016-09-18 07:13] LABS: BICARBONATE 35.6 MEQ/L (21.0-32.0); MAGNESIUM 2.2 MG/DL (1.5-2.5); POTASSIUM 4.8 MEQ/L (3.5-5.1)
[2016-09-18 08:00] VITALS: BP 99/55; PULSE 68; RESP 14; TEMP 97; O2SAT 94
[2016-09-18] MEDS: PIPERACIL-TAZO 2.25 GM PREMIX 50 ML IV SCH ×3 (08:00→21:23)
[2016-09-18] MEDS: FUROSEMIDE 40 MG/4 ML VIAL IV PUSH SCH ×2 (08:00→17:11)
[2016-09-18] MEDS: BUDESONIDE-FORMOTEROL 80/4.5 MCG INHALER INH SCH ×2 (08:52→21:23)
[2016-09-18] MEDS: SODIUM CHLORIDE 0.9% FLUSH 10 ML FLUSH IV FLUSH SCH ×2 (08:53→21:21)
[2016-09-18] MEDS: FAMOTIDINE 20 MG TAB PO SCH ×2 (08:53→21:16)
[2016-09-18] MEDS: MULTIVITAMIN TAB PO SCH (08:53)
[2016-09-18] MEDS ORDERED: BUMETANIDE 1 MG TAB PO SCH (09:00)
[2016-09-18] MEDS: POTASSIUM CHLORIDE 20 MEQ CONTROLLED RELEASE TAB PO SCH (09:34)
[2016-09-18 12:00] VITALS: BP 110/63; PULSE 68; RESP 16; TEMP 95.6; O2SAT 96
[2016-09-18] MEDS ORDERED: VANCOMYCIN INJ 1,750 MG in SODIUM CHLORID 0.9% 500 ML INJ 500 ML IV SCH (13:00)
[2016-09-18] MEDS ORDERED: RESP: ALBUTEROL 2.5 MG/IPRATROPIUM 0.5 MG NEB (PRN) NEB (14:45)
--- NOTE | 2016-09-18 15:07 | HHI.PR ---
Subjective Remarks No new complaints. Objective Vitals Vital Signs Date Time Temp Pulse Resp B/P Pulse Ox O2 Delivery O2 Flow Rate FiO2 09/18/16 12:00 95.6 68 16 110/63 96 09/18/16 08:00 97.0 68 14 99/55 94 09/18/16 00:00 96.1 86 17 102/75 99 09/17/16 20:00 95.8 75 18 117/59 96 09/17/16 18:10 95.9 86 18 114/60 95 09/17/16 16:33 97.8 78 16 106/67 99 Room Air 09/17/16 09/17/16 09/18/16 15:00 23:00 07:00 Intake Total 500 ml 240 ml Output Total 1400 ml 1400 ml Balance -900 ml -1160 ml Intake Oral 500 ml 240 ml IV Total 0 ml 0 ml Output Urine Total 1400 ml 1400 ml # Voids 1 Result Diagram: 09/18/16 0602 09/18/16 0602 Imaging Last Impressions Chest X-Ray 09/17/16 1239 Signed Impressions: Service Date/Time: Saturday, September 17, 2016 12:47 - CONCLUSION: Questionable mass on the right side and chest CT with intravenous contrast is suggested. Benja Escalona MD Chest CT 09/17/16 0000 Signed Impressions: Service Date/Time: Saturday, September 17, 2016 15:52 - CONCLUSION: 1. I do not see any suspicious lung lesions. 2. Thoracolumbar scoliosis with degenerative changes. 3. Prominent pulmonary arteries centrally, this can be seen with pulmonary hypertension. Mikey Pond MD FACR Objective Remarks GENERAL: This is a well-nourished, well-developed patient, in no apparent distress. CARDIOVASCULAR: Regular rate and rhythm without murmurs, gallops, or rubs. RESPIRATORY: Clear to auscultation. Breath sounds equal bilaterally. No wheezes , rales, or rhonchi. GASTROINTESTINAL: Abdomen soft, non-tender, nondistended. Normal active bowel sounds MUSCULOSKELETAL: Extremities without clubbing, cyanosis, or edema. NEURO: Alert & Oriented x4 to person, place, time, situation. Moves all ext x4 LLE: edematous, wound 3cm 2cm, erythema A/P Problem List: (1) Cellulitis of left lower extremity Status: Acute Plan: - s/p debridement by Dr. Yap (09/17/16) - continue IV Vancomycin & zosyn - elevate LLE - wound cx --> gram negative rods - blood cx --> NGTD - watch renal fxn (2) CHF (congestive heart failure) Status: Acute Plan: - lasix/KCL - last echocardiogram 01/30/15 showed preserved EF of 60% - repeat echocardiogram (3) Chronic a-fib Status: Chronic Plan: - pt is on no rate controlling medication - continue Coumadin - holter 02/2007 --> afib (4) Hypothyroid Status: Chronic Plan: - synthroid (5) COPD (chronic obstructive pulmonary disease) Status: Chronic Plan: - symbicort - duonebs Problem Qualifiers (1) CHF (congestive heart failure): Qualified Code: I50.9 - Chronic congestive heart failure, unspecified congestive heart failure type (2) Hypothyroid: Qualified Code: E03.9 - Hypothyroidism, unspecified type (3) COPD (chronic obstructive pulmonary disease): Qualified Code: J42 - Chronic bronchitis, unspecified chronic bronchitis type Lazaro Stock DO Sep 18, 2016 15:07
[2016-09-18] MEDS: WARFARIN SOD 5 MG TAB PO SCH (15:41)
[2016-09-18 16:00] VITALS: BP 108/64; PULSE 68; RESP 18; TEMP 97.4; O2SAT 98
--- NOTE | 2016-09-18 19:29 | EKG ---
Date Performed: 09/17/2016 Time Performed: 13:18:54 PTAGE: 75 years EKG: ATRIAL FIBRILLATION LOW QRS VOLTAGE IN EXTREMITY LEADS ARTIFACT NS ST-T CHANGES ABNORMAL EC G PREVIOUS TRACING : 09/17/2016 13.17 DOCTOR: Ralph Hubbard Interpretating Date/Time 09/18/2016 19:28:15
[2016-09-18 20:00] VITALS: BP 104/56; PULSE 86; RESP 19; TEMP 96.7; O2SAT 97
[2016-09-19] MEDS: PIPERACIL-TAZO 2.25 GM PREMIX 50 ML IV SCH ×3 (01:38→15:25)
[2016-09-19 04:00] VITALS: BP 109/89; PULSE 86; RESP 19; TEMP 98.2; O2SAT 92
[2016-09-19] MEDS: LEVOTHYROXINE SODIUM 100 MCG TAB PO SCH ×2 (04:40→07:57)
[2016-09-19] MEDS: MULTIVITAMIN TAB PO SCH (07:57)
[2016-09-19] MEDS: FAMOTIDINE 20 MG TAB PO SCH ×2 (07:57→20:47)
[2016-09-19] MEDS: FUROSEMIDE 40 MG/4 ML VIAL IV PUSH SCH (07:57)
[2016-09-19] MEDS: POTASSIUM CHLORIDE 20 MEQ CONTROLLED RELEASE TAB PO SCH (07:58)
[2016-09-19] MEDS: SODIUM CHLORIDE 0.9% FLUSH 10 ML FLUSH IV FLUSH SCH ×2 (07:59→20:50)
[2016-09-19] MEDS: BUDESONIDE-FORMOTEROL 80/4.5 MCG INHALER INH SCH ×2 (07:59→20:50)
[2016-09-19 08:00] VITALS: BP 116/63; PULSE 75; RESP 18; TEMP 97.4; O2SAT 92
[2016-09-19 12:00] VITALS: BP_SYST 120; BP_SYST 72; BP_SYST 82; BP_DIAS 43; BP_DIAS 48; BP_DIAS 80; PULSE 81; RESP 20; TEMP 96; O2SAT 95
[2016-09-19 12:51] LABS: BICARBONATE 36.3 MEQ/L (21.0-32.0); INTERNATIONAL NORMALIZED RATIO 1.9 RATIO; POTASSIUM 3.9 MEQ/L (3.5-5.1)
[2016-09-19 14:16] LABS: AUTOMATED NEUTROPHIL # 4.2 TH/MM3 (1.8-7.7); BASOPHIL # 0.1 TH/MM3 (0-0.2); EOSINOPHIL # 0.2 TH/MM3 (0-0.4); EOSINOPHIL % 3.3 % (0.0-4.0); HEMATOCRIT 32.1 % (35.0-46.0); HEMO FLAGS DIFF FINAL; LYMPH % 26.6 % (9.0-44.0); MEAN CELL VOLUME 89.1 FL (80.0-100.0); MEAN CORPUSCULAR HEMOGLOBIN 28.5 PG (27.0-34.0); MONO % 12.6 % (0.0-8.0); NEUT % 56.5 % (16.0-70.0); PLATELET COUNT 262 TH/MM3 (150-450); RED BLOOD COUNT 3.61 MIL/MM3 (4.00-5.30); RED CELL DISTRIBUTION WIDTH 15.9 % (11.6-17.2); WHITE BLOOD COUNT 7.5 TH/MM3 (4.0-11.0)
[2016-09-19] MEDS: WARFARIN SOD 5 MG TAB PO SCH (15:29)
[2016-09-19 16:00] VITALS: BP 98/60; PULSE 81; RESP 18; TEMP 98.4; O2SAT 96
--- NOTE | 2016-09-19 16:25 | HHI.PR ---
Subjective Remarks No new complaints. Objective Vitals Vital Signs Date Time Temp Pulse Resp B/P Pulse Ox O2 Delivery O2 Flow Rate FiO2 09/19/16 12:00 96.0 81 20 72/43 95 82/48 120/80 09/19/16 08:00 97.4 75 18 116/63 92 09/19/16 04:00 98.2 86 19 109/89 92 09/18/16 20:00 96.7 86 19 104/56 97 09/18/16 09/18/16 09/19/16 15:00 23:00 07:00 Intake Total 1052 ml 340 ml 240 ml Output Total 1400 ml 2000 ml 1500 ml Balance -348 ml -1660 ml -1260 ml Intake Oral 800 ml 240 ml 240 ml IV Total 252 ml 100 ml Output Urine Total 1400 ml 2000 ml 1500 ml # Bowel Movements 2 0 1 Result Diagram: 09/19/16 1320 09/19/16 1154 Imaging Last Impressions Chest X-Ray 09/17/16 1239 Signed Impressions: Service Date/Time: Saturday, September 17, 2016 12:47 - CONCLUSION: Questionable mass on the right side and chest CT with intravenous contrast is suggested. Benja Escalona MD Chest CT 09/17/16 0000 Signed Impressions: Service Date/Time: Saturday, September 17, 2016 15:52 - CONCLUSION: 1. I do not see any suspicious lung lesions. 2. Thoracolumbar scoliosis with degenerative changes. 3. Prominent pulmonary arteries centrally, this can be seen with pulmonary hypertension. Mikey Pond MD FACR Objective Remarks GENERAL: This is a well-nourished, well-developed patient, in no apparent distress. CARDIOVASCULAR: Regular rate and rhythm without murmurs, gallops, or rubs. RESPIRATORY: Clear to auscultation. Breath sounds equal bilaterally. No wheezes , rales, or rhonchi. GASTROINTESTINAL: Abdomen soft, non-tender, nondistended. Normal active bowel sounds MUSCULOSKELETAL: Extremities without clubbing, cyanosis, or edema. NEURO: Alert & Oriented x4 to person, place, time, situation. Moves all ext x4 LLE: edematous, wound 3cm x 2cm, erythema. Leg is less edematous and erythema is also improving, A/P Problem List: (1) Cellulitis of left lower extremity Status: Acute Plan: - s/p debridement by Dr. Yap (09/17/16) - continue IV Vancomycin & zosyn - elevate LLE - wound cx --> Pseudomonas aeruginosa - change abx to PO levaquin - blood cx --> NGTD - watch renal fxn (2) CHF (congestive heart failure) Status: Acute Plan: - lasix/KCL --> decrease lasix to 40mg IV daily - last echocardiogram 01/30/15 showed preserved EF of 60% - repeat echocardiogram --> pending (3) Chronic a-fib Status: Chronic Plan: - pt is on no rate controlling medication - continue Coumadin - holter 02/2007 --> afib - INR 1.9 (09/19/16) (4) Hypothyroid Status: Chronic Plan: - synthroid (5) COPD (chronic obstructive pulmonary disease) Status: Chronic Plan: - symbicort - duonebs Problem Qualifiers (1) CHF (congestive heart failure): Qualified Code: I50.9 - Chronic congestive heart failure, unspecified congestive heart failure type (2) Hypothyroid: Qualified Code: E03.9 - Hypothyroidism, unspecified type (3) COPD (chronic obstructive pulmonary disease): Qualified Code: J42 - Chronic bronchitis, unspecified chronic bronchitis type Lazaro Stock DO Sep 19, 2016 16:25
[2016-09-19 20:48] VITALS: BP 113/57; PULSE 85; RESP 18; TEMP 96.4; O2SAT 95
[2016-09-20] VITALS: BP 111/64; PULSE 81; RESP 20; TEMP 96.9; O2SAT 93
[2016-09-20 05:57] LABS: AUTOMATED NEUTROPHIL # 2.9 TH/MM3 (1.8-7.7); BASOPHIL % 0.9 % (0.0-2.0); EOSINOPHIL # 0.3 TH/MM3 (0-0.4); EOSINOPHIL % 5.6 % (0.0-4.0); HEMATOCRIT 28.5 % (35.0-46.0); HEMO FLAGS DIFF FINAL; LYMPH % 27.7 % (9.0-44.0); LYMPHOCYTE # 1.5 TH/MM3 (1.0-4.8); MEAN CELL VOLUME 87.9 FL (80.0-100.0); MEAN CORPUSCULAR HEMOGLOBIN 28.9 PG (27.0-34.0); MEAN CORPUSCULAR HGB CONC 32.9 % (32.0-36.0); MONO % 12.9 % (0.0-8.0); NEUT % 52.9 % (16.0-70.0); PLATELET COUNT 256 TH/MM3 (150-450); RED BLOOD COUNT 3.24 MIL/MM3 (4.00-5.30); RED CELL DISTRIBUTION WIDTH 15.7 % (11.6-17.2); WHITE BLOOD COUNT 5.5 TH/MM3 (4.0-11.0)
[2016-09-20 06:01] LABS: PROTHROMBIN TIME - PATIENT 22.8 SEC (9.8-11.6)
[2016-09-20 06:19] LABS: BICARBONATE 34.2 MEQ/L (21.0-32.0); MAGNESIUM 2.2 MG/DL (1.5-2.5)
[2016-09-20 08:00] VITALS: BP 84/47; PULSE 88; RESP 20; TEMP 98.1; O2SAT 98
[2016-09-20] MEDS ORDERED: FUROSEMIDE 40 MG/4 ML VIAL IV PUSH SCH (08:00)
[2016-09-20] MEDS: POTASSIUM CHLORIDE 20 MEQ CONTROLLED RELEASE TAB PO SCH (08:59)
[2016-09-20] MEDS: FAMOTIDINE 20 MG TAB PO SCH ×2 (08:59→20:26)
[2016-09-20] MEDS: SODIUM CHLORIDE 0.9% FLUSH 10 ML FLUSH IV FLUSH SCH ×2 (09:00→20:27)
[2016-09-20] MEDS: MULTIVITAMIN TAB PO SCH (09:00)
[2016-09-20] MEDS ORDERED: LEVOFLOXACIN 500 MG TAB PO ONE (09:00)
[2016-09-20] MEDS: BUDESONIDE-FORMOTEROL 80/4.5 MCG INHALER INH SCH ×2 (09:00→20:28)
--- NOTE | 2016-09-20 11:29 | HHI.PR ---
Subjective Remarks pt prefers going home instead of snf in next few days. Objective Vitals heent neg heart reg lung cta abd s/nt ext less lower ext edema left romero open wound noted. edema/redness improving. no purelent d/c Vital Signs Date Time Temp Pulse Resp B/P Pulse Ox O2 Delivery O2 Flow Rate FiO2 09/20/16 08:00 98.1 88 20 84/47 98 09/20/16 00:00 96.9 81 20 111/64 93 09/19/16 20:48 96.4 85 18 113/57 95 09/19/16 16:00 98.4 81 18 98/60 96 09/19/16 12:00 96.0 81 20 72/43 95 82/48 120/80 09/19/16 09/19/16 09/20/16 15:00 23:00 07:00 Intake Total 604 ml 240 ml 240 ml Output Total 800 ml 600 ml Balance -196 ml -360 ml 240 ml Intake Oral 600 ml 240 ml 240 ml IV Total 4 ml Output Urine Total 800 ml 600 ml # Voids 1 # Bowel Movements 1 0 0 Result Diagram: 09/20/16 0515 09/20/16 0515 Imaging Last Impressions Chest X-Ray 09/17/16 1239 Signed Impressions: Service Date/Time: Saturday, September 17, 2016 12:47 - CONCLUSION: Questionable mass on the right side and chest CT with intravenous contrast is suggested. Benja Escalona MD Chest CT 09/17/16 0000 Signed Impressions: Service Date/Time: Saturday, September 17, 2016 15:52 - CONCLUSION: 1. I do not see any suspicious lung lesions. 2. Thoracolumbar scoliosis with degenerative changes. 3. Prominent pulmonary arteries centrally, this can be seen with pulmonary hypertension. Mikey Pond MD FACR A/P Problem List: (1) Cellulitis of left lower extremity Status: Acute Plan: - s/p debridement by Dr. Yap (09/17/16) -cont iv zosyn and convert to po abx upon d/c wound consulted by gen surg..I looked at wound with wound care who recommended adding santyl and either topical gent or mupirocin. given the pseudomonas I will add the gent. hold iv lasix in setting of lower bp..resume her po when bp allows. - (2) CHF (congestive heart failure) Status: Acute Plan: - hold iv lasix. resume po lasix tomorrow. echo pending. (3) Chronic a-fib Status: Chronic Plan: - pt is on no rate controlling medication - continue Coumadin - holter 02/2007 --> afib - monitor inr (4) Hypothyroid Status: Chronic Plan: - synthroid (5) COPD (chronic obstructive pulmonary disease) Status: Chronic Plan: - symbicort - duonebs Problem Qualifiers (1) CHF (congestive heart failure): Qualified Code: I50.9 - Chronic congestive heart failure, unspecified congestive heart failure type (2) Hypothyroid: Qualified Code: E03.9 - Hypothyroidism, unspecified type (3) COPD (chronic obstructive pulmonary disease): Qualified Code: J42 - Chronic bronchitis, unspecified chronic bronchitis type Jimmie Best MD September 20, 2016 11:29
[2016-09-20] MEDS ORDERED: PIPERACIL-TAZO 2.25 GM PREMIX 50 ML IV SCH (11:30)
[2016-09-20 12:00] VITALS: BP 136/85; PULSE 88; RESP 18; TEMP 97.2; O2SAT 92
--- NOTE | 2016-09-20 12:50 | HHI.PR ---
Subjective Subjective Notes Stable. No major complaints. Objective Vitals/I&O Vital Signs Date Time Temp Pulse Resp B/P Pulse Ox O2 Delivery O2 Flow Rate FiO2 09/20/16 12:00 97.2 88 18 136/85 92 09/17/16 16:33 Room Air Labs Laboratory Tests Test 09/19/16 09/20/16 13:20 05:15 White Blood Count 7.5 5.5 Red Blood Count 3.61 3.24 Hemoglobin 10.3 9.4 Hematocrit 32.1 28.5 Mean Corpuscular Volume 89.1 87.9 Mean Corpuscular Hemoglobin 28.5 28.9 Mean Corpuscular Hemoglobin 32.0 32.9 Concent Red Cell Distribution Width 15.9 15.7 Platelet Count 262 256 Mean Platelet Volume 8.7 8.6 Neutrophils (%) (Auto) 56.5 52.9 Lymphocytes (%) (Auto) 26.6 27.7 Monocytes (%) (Auto) 12.6 12.9 Eosinophils (%) (Auto) 3.3 5.6 Basophils (%) (Auto) 1.0 0.9 Neutrophils # (Auto) 4.2 2.9 Lymphocytes # (Auto) 2.0 1.5 Monocytes # (Auto) 0.9 0.7 Eosinophils # (Auto) 0.2 0.3 Basophils # (Auto) 0.1 0.0 CBC Comment DIFF FINAL DIFF FINAL Differential Comment Prothrombin Time 22.8 Prothromb Time International 2.0 Ratio Sodium Level 140 Potassium Level 4.0 Chloride Level 100 Carbon Dioxide Level 34.2 Anion Gap 6 Blood Urea Nitrogen 28 Creatinine 1.79 Estimat Glomerular Filtration 28 Rate Random Glucose 92 Calcium Level 8.1 Magnesium Level 2.2 Random Vancomycin Level 15.0 Date/Time Procedure Status Source Growth 09/17/16 16:35 Urine Culture - Final Complete Urine Clean Catch 10-50,000 CFU/ML MIXED ELENA... 09/17/16 13:12 Aerobic Blood Culture - Preliminary Resulted Blood Peripheral NO GROWTH IN 3 DAYS 09/17/16 13:12 Anaerobic Blood Culture - Preliminary Resulted Blood Peripheral NO GROWTH IN 3 DAYS 09/17/16 13:00 Gram Stain - Final Complete Wound Leg 09/17/16 13:00 Wound Culture - Final Complete Pseudomonas Aeruginosa Narrative Exam NAD, comfortable in bed nonlabored breathing LLE: edema significantly improved, dry scaly skin now. Erythema better but still present. Wound improved, granulating in areas, some small areas of necrosis still present A/P Assessment and Plan 75 yo F LLE wound, improving Edema and wound both improving. Recommend to continue current treatment. She will need to f/u in our office at wound care clinic weekly after discharge. Florentino Yap MD September 20, 2016 12:50
[2016-09-20] MEDS: GENTAMICIN SULFATE 0.1% OINT 15 GM TUBE TOPICAL SCH ×2 (13:44→16:24)
[2016-09-20] MEDS: PIPERACIL-TAZO 2.25 GM PREMIX 50 ML IV SCH ×2 (13:44→19:15)
[2016-09-20 16:00] VITALS: BP 95/54; PULSE 72; RESP 18; TEMP 96.1; O2SAT 98
[2016-09-20] MEDS: NYSTATIN 100,000 U/GM PWD 15 GM BTL TOPICAL SCH ×2 (16:24→20:27)
[2016-09-20] MEDS: WARFARIN SOD 5 MG TAB PO SCH (16:24)
[2016-09-20 20:00] VITALS: BP 105/56; PULSE 68; RESP 19; TEMP 96; O2SAT 96
--- NOTE | 2016-09-20 21:01 | EC ---
Study Study Date:09/20/2016 STUDY CONCLUSIONS SUMMARY - Left ventricle: The cavity size was normal. Wall thickness was increased in a pattern of mild LVH. Systolic function was normal. The estimated ejection fraction was 65%. Wall motion was normal; there were no regional wall motion abnormalities. - Left atrium: The atrium was mildly dilated. - Right ventricle: The cavity size was dilated. Wall thickness was normal. - Pulmonary arteries: Systolic pressure was mildly to moderately increased. PA peak pressure: 49mm Hg (S). If LV function is below 40, please consider prescribing an ACEI or ARB or document rationale for non-use. PROCEDURE DATA STUDY STATUS: Elective. Procedure: Transthoracic echocardiography. Image quality was good. Scanning was performed from the parasternal, apical, and subcostal acoustic windows. Study completion: The patient tolerated the procedure well. Transthoracic echocardiography. M-mode, complete 2D, complete spectral Doppler, and color Doppler. Patient status: Inpatient. CARDIAC ANATOMY LEFT VENTRICLE: The cavity size was normal. Wall thickness was increased in a pattern of mild LVH. Systolic function was normal. The estimated ejection fraction was 65%. Wall motion was normal; there were no regional wall motion abnormalities. AORTIC VALVE: Trileaflet; normal thickness leaflets. Doppler: Transvalvular velocity was within the normal range. There was no stenosis. No regurgitation. AORTA: Aortic root: The aortic root was normal in size. MITRAL VALVE: Structurally normal valve. Doppler: Transvalvular velocity was within the normal range. There was no evidence for stenosis. Trace regurgitation. LEFT ATRIUM: The atrium was mildly dilated. RIGHT VENTRICLE: The cavity size was dilated. Wall thickness was normal. PULMONIC VALVE: Doppler: Transvalvular velocity was within the normal range. There was no evidence for stenosis. No regurgitation. TRICUSPID VALVE: Structurally normal valve. Doppler: Transvalvular velocity was within the normal range. Trace regurgitation. PULMONARY ARTERY: The main pulmonary artery was normal-sized. Systolic pressure was mildly to moderately increased. RIGHT ATRIUM: The atrium was normal in size. PERICARDIUM: There was no pericardial effusion. SYSTEMIC VEINS: Inferior vena cava: The vessel was normal in size. BASIC MEASUREMENTS ADULT Normal Left ventricle LV internal dimension, ED, chordal level, *53.8 mm 43-52 PLAX LV internal dimension, ES, chordal level, 35.6 mm 23-38 PLAX Fractional shortening, chordal level, PLAX 34 % >29 LV posterior wall thickness, ED 12.2 mm IVS/LVPW ratio, ED 0.59 <1.3 Ventricular septum Septal thickness, ED 7.14 mm Aortic valve Leaflet separation *14 mm 15-26 Right ventricle RV internal dimension, ED, PLAX *38.6 mm 19-38 BASIC MEASUREMENTS ADULT Normal Aortic valve Leaflet separation *14 mm 15-26 Aorta Root diameter, ED 30 mm 20-37 Left atrium Anterior-posterior dimension, ES *46 mm 19-40 LA/aortic root ratio 1.53 DOPPLER MEASUREMENTS ADULT Normal Main pulmonary artery Pressure, S *49 mm Hg =30 Tricuspid valve Regurgitant peak velocity 309 cm/s Peak RV-RA gradient, S 38 mm Hg Maximal regurgitant velocity 309 cm/s Systemic veins Estimated CVP 10 mm Hg Right ventricle RV pressure, S *49 mm Hg <30 LEGEND: Mean values are shown as u=mean value. Asterisk (*) steele values outside specified normal range. Prepared and signed by Ralph Hubbard [id number]
[2016-09-21] VITALS: BP 109/57; PULSE 68; RESP 19; TEMP 96; O2SAT 92
[2016-09-21] MEDS: PIPERACIL-TAZO 2.25 GM PREMIX 50 ML IV SCH ×5 (01:00→23:55)
[2016-09-21] MEDS: LEVOTHYROXINE SODIUM 100 MCG TAB PO SCH (06:15)
[2016-09-21] MEDS: NYSTATIN 100,000 U/GM PWD 15 GM BTL TOPICAL SCH ×3 (06:15→20:08)
[2016-09-21 06:17] LABS: INTERNATIONAL NORMALIZED RATIO 2.1 RATIO; PROTHROMBIN TIME - PATIENT 24.1 SEC (9.8-11.6)
[2016-09-21 06:27] LABS: BICARBONATE 35.6 MEQ/L (21.0-32.0)
[2016-09-21] MEDS: FAMOTIDINE 20 MG TAB PO SCH ×2 (07:56→20:07)
[2016-09-21] MEDS: SODIUM CHLORIDE 0.9% FLUSH 10 ML FLUSH IV FLUSH SCH ×2 (07:56→20:07)
[2016-09-21] MEDS: MULTIVITAMIN TAB PO SCH (07:56)
[2016-09-21] MEDS: COLLAGENASE OINT 30 GM TUBE TOPICAL SCH (07:57)
[2016-09-21] MEDS: BUDESONIDE-FORMOTEROL 80/4.5 MCG INHALER INH SCH ×2 (07:57→20:09)
[2016-09-21] MEDS: GENTAMICIN SULFATE 0.1% OINT 15 GM TUBE TOPICAL SCH ×3 (07:57→17:11)
[2016-09-21 08:00] VITALS: BP 95/57; PULSE 70; RESP 17; TEMP 97; O2SAT 93
--- NOTE | 2016-09-21 09:50 | HHI.PR ---
Subjective Subjective Notes Stable, no complaints. Objective Vitals/I&O Vital Signs Date Time Temp Pulse Resp B/P Pulse Ox O2 Delivery O2 Flow Rate FiO2 09/21/16 08:00 97.0 70 17 95/57 93 09/17/16 16:33 Room Air Labs Laboratory Tests Test 09/21/16 05:19 Prothrombin Time 24.1 Prothromb Time International 2.1 Ratio Sodium Level 142 Potassium Level 4.0 Chloride Level 102 Carbon Dioxide Level 35.6 Anion Gap 4 Blood Urea Nitrogen 25 Creatinine 1.78 Estimat Glomerular Filtration 28 Rate Random Glucose 88 Calcium Level 8.1 Date/Time Procedure Status Source Growth 09/17/16 16:35 Urine Culture - Final Complete Urine Clean Catch 10-50,000 CFU/ML MIXED ELENA... 09/17/16 13:12 Aerobic Blood Culture - Preliminary Resulted Blood Peripheral NO GROWTH IN 3 DAYS 09/17/16 13:12 Anaerobic Blood Culture - Preliminary Resulted Blood Peripheral NO GROWTH IN 3 DAYS 09/17/16 13:00 Gram Stain - Final Complete Wound Leg 09/17/16 13:00 Wound Culture - Final Complete Pseudomonas Aeruginosa Narrative Exam NAD, comfortable in bed nonlabored breathing LLE: edema significantly improved, dry scaly skin now. Erythema better but still present. Wound improved, granulating in areas, some small areas of necrosis still present. Dressing was removed for my evaluation A/P Assessment and Plan 75 yo F LLE wound, improving Wound is stable, healing. Edema much better. I am ok with discharge when appropriate per medical team. She has an appt Tuesday 3pm with Mckayla wound care nurse in our office. Will need [facility] wound care daily until then. Fracisco,Florentino GARCIA September 21, 2016 09:50
[2016-09-21 12:00] VITALS: BP 97/54; PULSE 72; RESP 16; TEMP 97.3; O2SAT 95
--- NOTE | 2016-09-21 12:37 | HHI.PR ---
Subjective Remarks doing ok. no new complaints Objective Vitals heart reg lung cta abd s/nt ext left leg wrapped. Vital Signs Date Time Temp Pulse Resp B/P Pulse Ox O2 Delivery O2 Flow Rate FiO2 09/21/16 08:00 97.0 70 17 95/57 93 09/21/16 00:00 96.0 68 19 109/57 92 09/20/16 20:00 96.0 68 19 105/56 96 09/20/16 16:00 96.1 72 18 95/54 98 09/20/16 09/20/16 09/21/16 15:00 23:00 07:00 Intake Total 1249 ml 290 ml 340 ml Output Total 800 ml Balance 449 ml 290 ml 340 ml Intake Oral 1200 ml 240 ml 240 ml IV Total 49 ml 50 ml 100 ml Output Urine Total 800 ml # Voids 2 3 # Bowel Movements 3 0 0 Result Diagram: 09/20/16 0515 09/21/16 0519 Imaging Last Impressions Chest X-Ray 09/17/16 1239 Signed Impressions: Service Date/Time: Saturday, September 17, 2016 12:47 - CONCLUSION: Questionable mass on the right side and chest CT with intravenous contrast is suggested. Benja Escalona MD Chest CT 09/17/16 0000 Signed Impressions: Service Date/Time: Saturday, September 17, 2016 15:52 - CONCLUSION: 1. I do not see any suspicious lung lesions. 2. Thoracolumbar scoliosis with degenerative changes. 3. Prominent pulmonary arteries centrally, this can be seen with pulmonary hypertension. Mikey Pond MD FACR A/P Problem List: (1) Cellulitis of left lower extremity Status: Acute Plan: - s/p debridement by Dr. Yap (09/17/16) -cont iv zosyn and convert to po abx upon d/c wound consulted by gen surg..I looked at wound with wound care who recommended adding santyl and either topical gent or mupirocin. given the pseudomonas I will add the gent. cont po lasix. edema better. cont aurelia wrap plan for d/c tomorrow with [facility] and wound care f/u cp wound clinic Tuesday pt not interested in snf. (2) CHF (congestive heart failure) Status: Acute Plan: po lasix (3) Chronic a-fib Status: Chronic Plan: - pt is on no rate controlling medication - continue Coumadin - holter 02/2007 --> afib - monitor inr (4) Hypothyroid Status: Chronic Plan: - synthroid (5) COPD (chronic obstructive pulmonary disease) Status: Chronic Plan: - symbicort - duonebs Problem Qualifiers (1) CHF (congestive heart failure): Qualified Code: I50.9 - Chronic congestive heart failure, unspecified congestive heart failure type (2) Hypothyroid: Qualified Code: E03.9 - Hypothyroidism, unspecified type (3) COPD (chronic obstructive pulmonary disease): Qualified Code: J42 - Chronic bronchitis, unspecified chronic bronchitis type Jimmie Best MD September 21, 2016 12:36
--- NOTE | 2016-09-21 12:38 | HHI.DCPOC ---
Discharge Care Plan Diagnosis: (1) Cellulitis of left lower extremity Goals to Promote Your Health * To prevent worsening of your condition and complications * To maintain your health at the optimal level Directions to Meet Your Goals Take your medications as prescribed Follow your dietary instruction Follow activity as directed Keep your appointments as scheduled Take your immunizations and boosters as scheduled If your symptoms worsen call your PCP, if no PCP go to Urgent Care Center or Emergency Room Smoking is Dangerous to Your Health. Avoid second hand smoke Call the 24-hour hour crisis hotline for domestic abuse at Jimmie Best MD September 21, 2016 12:38
--- NOTE | 2016-09-21 12:42 | HHI.FF ---
Face to Face Verification Diagnosis: (1) Cellulitis of left lower extremity Home Health Nursing Order: Medical education Signs/symptoms of disease process Medication education-adverse effect Wound care and dressing changes Nursing assessment with vital signs Instructions: Wound measurements noted above. Depth is unable to be measured due to presence of slough. Wound bed presents with ~20% red granulated tissue, ~30% pink tissue, ~40% yellow slough and ~10% black tissue possibly from silver nitrate.Wound drainage is minimal and cloudy sero-sangunguinous RECOMMEND TO CLEANSE WOUND WITH NORMAL SALINE ONLY AND APPLY 50/50 MIX OF GENTAMYCIN OINTMENT AND SANTYL OINTMENT TO WOUND BED. COVER WITH DRY COVER DRESSING. SECURE WITH ROLLED GAUZE, TAPE AND VEENA WRAP.PLEASE CHANGE DRESSING DAILY. I have seen patient Adele Estevez on 09/21/16. My clinical findings support the need for the requested home health care services because: Limited ability to care for self I certify that my clinical findings support that this patient is homebound because: Unsteady gait/balance Jimmie Best MD September 21, 2016 12:42
[2016-09-21] MEDS: FUROSEMIDE 40 MG TAB PO SCH (13:17)
[2016-09-21 16:00] VITALS: BP 96/54; PULSE 63; RESP 16; TEMP 96.5; O2SAT 98
[2016-09-21] MEDS: WARFARIN SOD 5 MG TAB PO SCH (17:07)
[2016-09-21 20:00] VITALS: BP 129/62; PULSE 80; RESP 21; TEMP 97; O2SAT 93
[2016-09-22] VITALS: BP 104/56; PULSE 73; RESP 19; TEMP 97.7; O2SAT 95
[2016-09-22] MEDS: PIPERACIL-TAZO 2.25 GM PREMIX 50 ML IV SCH (05:37)
[2016-09-22] MEDS: NYSTATIN 100,000 U/GM PWD 15 GM BTL TOPICAL SCH (05:37)
[2016-09-22] MEDS: LEVOTHYROXINE SODIUM 100 MCG TAB PO SCH (05:37)
[2016-09-22 06:29] LABS: PROTHROMBIN TIME - PATIENT 23.1 SEC (9.8-11.6)
[2016-09-22 08:00] VITALS: BP 97/61; PULSE 68; RESP 17; TEMP 97.5; O2SAT 96
[2016-09-22] MEDS: MULTIVITAMIN TAB PO SCH (08:51)
[2016-09-22] MEDS: FUROSEMIDE 40 MG TAB PO SCH (08:51)
[2016-09-22] MEDS: FAMOTIDINE 20 MG TAB PO SCH (08:52)
[2016-09-22] MEDS: SODIUM CHLORIDE 0.9% FLUSH 10 ML FLUSH IV FLUSH SCH (08:52)
[2016-09-22] MEDS: BUDESONIDE-FORMOTEROL 80/4.5 MCG INHALER INH SCH (08:52)
[2016-09-22] MEDS: GENTAMICIN SULFATE 0.1% OINT 15 GM TUBE TOPICAL SCH (08:55)
[2016-09-22] MEDS: COLLAGENASE OINT 30 GM TUBE TOPICAL SCH (08:55)
[2016-09-22] MEDS ORDERED: LEVOFLOXACIN 250 MG TAB PO SCH (09:00)
[2016-09-22] MEDS ORDERED: FURO40TA PO (11:41)
[2016-09-22] MEDS ORDERED: GENT0.1O2 TOPICAL (11:41)
[2016-09-22] MEDS ORDERED: COLL30T TOPICAL (11:41)
[2016-09-22 12:00] VITALS: BP 109/56; PULSE 73; RESP 17; TEMP 96.8; O2SAT 96
--- NOTE | 2016-09-22 12:07 | HHI.DS ---
Discharge Summary Admission Date Sep 17, 2016 at 14:10 Discharge Date: September 22, 2016 Admitting Diagnosis Left Leg Wound/Cellulitis (1) Cellulitis of left lower extremity Diagnosis: Principal (2) CHF (congestive heart failure) Diagnosis: Secondary (3) Chronic a-fib Diagnosis: Secondary (4) Hypothyroid Diagnosis: Secondary (5) COPD (chronic obstructive pulmonary disease) Diagnosis: Secondary Consultants Dr. Florentino Yap - General Surgery Brief History Patient is a pleasant 75-year-old female with history of atrial fibrillation, CHF, hypothyroidism. Patient injured her left lower extremity with a fall approximately 3 weeks ago. Patient's mother suffered a small wound at the left lower extremity. Patient failed to improve on outpatient oral antibiotics, Keflex. She was hospitalized for a few days at [facility]. Patient was treated with IV antibiotics with IV vancomycin per ID Dr. Zheng, and then discharged to [facility] on a regimen of Cefdinir and doxycycline. I was the attending physician at [facility]. Nursing staff informed me that patient was having significant drainage from edematous left lower extremity. When I came to reevaluate the patient on 09/17/16, left lower extremity had worsening edema, erythema, and wound looked worse with necrotic tissue. I requested that the patient be sent to [facility] for admission. I discussed the case with general surgery, Dr. Florentino Yap. Dr. Yap consult is on Ms. Gramajo and performed bedside debridement. Patient started on IV antibiotics and admitted to [facility] for further evaluation and treatment. CBC/BMP: 09/20/16 0515 09/21/16 0519 Significant Findings Laboratory Tests Test 09/19/16 09/19/16 09/20/16 09/21/16 11:54 13:20 05:15 05:19 Prothrombin Time 22.0 SEC 22.8 SEC 24.1 SEC (9.8-11.6) (9.8-11.6) (9.8-11.6) Carbon Dioxide Level 36.3 MEQ/L 34.2 MEQ/L 35.6 MEQ/L (21.0-32.0) (21.0-32.0) (21.0-32.0) Blood Urea Nitrogen 29 MG/DL (7-18) 28 MG/DL (7-18) 25 MG/DL (7-18) Creatinine 1.99 MG/DL 1.79 MG/DL 1.78 MG/DL (0.50-1.00) (0.50-1.00) (0.50-1.00) Estimat Glomerular Filtration 25 ML/MIN (>89) 28 ML/MIN (>89) 28 ML/MIN (>89) Rate Red Blood Count 3.61 MIL/MM3 3.24 MIL/MM3 (4.00-5.30) (4.00-5.30) Hemoglobin 10.3 GM/DL 9.4 GM/DL (11.6-15.3) (11.6-15.3) Hematocrit 32.1 % 28.5 % (35.0-46.0) (35.0-46.0) Monocytes (%) (Auto) 12.6 % 12.9 % (0.0-8.0) (0.0-8.0) Eosinophils (%) (Auto) 5.6 % (0.0-4.0) Calcium Level 8.1 MG/DL 8.1 MG/DL (8.5-10.1) (8.5-10.1) Anion Gap 4 MEQ/L (5-15) Test 09/22/16 04:49 Prothrombin Time 23.1 SEC (9.8-11.6) Imaging Last Impressions Chest X-Ray 09/17/16 1239 Signed Impressions: Service Date/Time: Saturday, September 17, 2016 12:47 - CONCLUSION: Questionable mass on the right side and chest CT with intravenous contrast is suggested. Benja Escalona MD Chest CT 09/17/16 0000 Signed Impressions: Service Date/Time: Saturday, September 17, 2016 15:52 - CONCLUSION: 1. I do not see any suspicious lung lesions. 2. Thoracolumbar scoliosis with degenerative changes. 3. Prominent pulmonary arteries centrally, this can be seen with pulmonary hypertension. Mikey Pond MD FACR Hospital Course Pt was previously hospitalized for a few days at [facility] for LLE cellulitis. She was treated with IV antibiotics with IV vancomycin per ID Dr. Zheng, and then discharged to [facility] on a regimen of Cefdinir and doxycycline. While at the [facility] she began having significant drainage from edematous left lower extremity and pt was sent to [facility] for admission. Pt was seen by General Surgery, Dr. Florentino Yap who performed bedside debridement on 09/17/16 and was started on IV Zosyn. Pt was evaluated by wound care during this admission and was recommended to have Santyl and topical gent or mupirocin and given the pseudomonas gentamicin TID was added. Pts edema improved with LE wrapping and PO Lasix. General surgery cleared her for discharge with [facility] and wound care and she has an appt to followup with [facility] wound clinic Tuesday at 3pm with Mckayla Esqueda. Pt will be continued on PO Lasix as an outpt instead of the po Bumex Pt will be continued on Levaquin 250mg po daily x 8 more days We will have [facility] check PT/INR on 09/24/16 and Tuesday09/27/16 and repeat BMP on Tuesday09/27/16 Pt Condition on Discharge: Stable Discharge Disposition: Disch w/ Home Health Serv Discharge Instructions DIET: Follow Instructions for: Heart Healthy Diet Activities you can perform: Weight Bearing as Lalita Follow up Referrals: PCP Follow-up - [address] Tiffanie [facility] - 09/27/16 with Mckayla Esqueda at [facility] Wound Care New Medications: Levofloxacin (Levaquin) 250 Mg Tab 250 MG PO DAILY Infection #8 Ref 0 TAB Collagenase (Santyl) 250 Unit/Gm Oin 1 APPLIC TOPICAL DAILY cellulitis #1 TUBE Furosemide (Furosemide) 40 Mg Tab 40 MG PO DAILY LE edema #30 TAB Gentamicin Topical (Gentamicin Topical) 0.1% Oint 1 APPLIC TOPICAL TID cellulitis #1 TUBE Continued Medications: Acetaminophen-Codeine (Tylenol-Codeine #3) 300-30 mg Tab 1 TAB PO Q6H PRN PAIN Days 14 Ref 0 TAB Budesonide-Formoterol Inh (Symbicort Inh) 80-4.5 Mcg/Act Aero 1 PUFF INH Q12HR Asthma Management #1 Ref 0 INHALER Docusate Sodium (Colace) 100 Mg Cap 100 MG PO Q12HR Constipation #60 Ref 0 CAP Famotidine (Pepcid) 20 Mg Tab 20 MG PO BID GERD #60 Ref 0 TAB Levothyroxine (Levothyroxine) 100 Mcg Tab 100 MCG PO DAILY Thyroid #30 Ref 0 TAB Magnesium Hydroxide Liq (Milk of Magnesia Liq) 400 Mg/5 Ml Susp 30 ML PO BID PRN CONSTIPATION Ref 0 ML Multiple Vitamin (Multi Vitamin) 1 Tab Tab 1 TAB PO DAILY Nutritional Supplement TAB [place]-3 Fatty Acids ([place]-3 Fish Oil 1000 mg) 1 Cap Cap 1000 MG PO BID Nutritional Supplement Ondansetron (Zofran) 4 Mg Tab 4 MG PO Q6HR PRN NAUSEA OR VOMITING Ref 0 TAB Warfarin (Coumadin) 5 Mg Tab 5 MG PO DAILY Atrial Fibrillation #30 Ref 0 TAB Discontinued Medications: Bumetanide (Bumetanide) 0.5 Mg Tab 0.5 MG PO DAILY HTN Ref 0 TAB Cefdinir (Cefdinir) 300 Mg Cap 300 MG PO Q12HR Cellulitis #10 Ref 0 CAP Doxycycline Hyclate (Doxycycline Hyclate) 100 Mg Cap 100 MG PO BID Cellulitis Days 10 Ref 0 CAP Summer López September 22, 2016 12:07 Jimmie Best MD September 22, 2016 14:41
[2016-09-22] MEDS ORDERED: LEVA250T PO (13:37)
== END 2016-09-22 14:30 | disposition home or self-care (01) | DRG 603 ==
LOC: NEPE 11:59 → NEDA 14:10 → N07A 18:04
PROVIDERS: ADMIT Hospitalist; ATTEND Hospitalist
DX: L03.116 Cellulitis of left lower limb (principal); I13.0 Hypertensive heart and chronic kidney disease with heart failure and stage 1 through stage 4 chronic kidney disease, or unspecified chronic kidney disease; I50.9 Heart failure, unspecified; I48.2 Chronic atrial fibrillation; Z68.42 Body mass index [BMI] 45.0-49.9, adult; B96.5 Pseudomonas (aeruginosa) (mallei) (pseudomallei) as the cause of diseases classified elsewhere; E03.9 Hypothyroidism, unspecified; E66.01 Morbid (severe) obesity due to excess calories; E78.5 Hyperlipidemia, unspecified; J44.9 Chronic obstructive pulmonary disease, unspecified; N18.3 Chronic kidney disease, stage 3 (moderate); Z87.891 Personal history of nicotine dependence; Z79.01 Long term (current) use of anticoagulants
CPT/HCPCS: 71010; 71260; 76937; 80048; 80053; 80202; 81001; 83605; 83735; 85025; 85610; 85730; 87040; 87070; 87077; 87086; 87186; 93005; 93306; 96365; 96368; J1940; J2543; J3370; J7040; J7050; Q9967